=== PATIENT | male | born 1970 | race Caucasian/White ===

== ENCOUNTER 2016-05-06 22:02 | Emergency (ER) | payer OTHER ==
--- NOTE | 2016-05-07 12:40 | ER ---
ADMIT: 05/06/2016 RM/LOC: ER [facility] MR#: [id number] [address] [id number] JULIANNA PATTERSON [address] [place] [id number] Emergency Room Report SEX: M AGE: 45 : 1970 DATE: 05/06/2016 For chief complaint, history of present illness, past medical history, medications, allergies, review of systems, including physical exam, please see my T-sheet. INTERIM HISTORY: The patient is a 45-year-old male with med clearance for nursing home, he is out, he has drunk, he drinks everyday, he blew 0.4. He is in police custody. He demonstrates the ability to walk and talk. Denies any complaints besides musculoskeletal. IMPRESSION: Alcohol intoxication, clearance for nursing home. ANTOINE Edwards / Patricio Bear MD / jane JOB #: [id number] CC: Patricio Bear MD, Attending Physician Magda Magdaleno MD, Family Physician
== END 2016-05-06 22:46 ==
LOC: ER 22:02
DX: Z02.89 Encounter for other administrative examinations (principal); F10.129 Alcohol abuse with intoxication, unspecified; Z79.899 Other long term (current) drug therapy